=== PATIENT | female | born 1975 | race Caucasian/White ===

== ENCOUNTER 2020-11-17 18:58 | Emergency (ER) | payer BC ==
[~2020-11-17] VITALS: Ht 175.3 cm; Wt 84.1 kg
[~2020-11-17 18:58] MED LIST: HYDROCODON-ACE1 EA10 PO; HYDROCODON-ACE1 EAC7 PO; TORADOL10 MG PO
[2020-11-17 19:13] VITALS: BP 121/64; Ht 175.3 cm; Wt 84.1 kg
[2020-11-17] MEDS ORDERED: DICLOFENAC SODI50 MG PO (19:53)
== END 2020-11-17 20:04 | disposition home or self-care (01) ==
LOC: D.ER 18:58
DX: M54.5 Low back pain (principal); M79.641 Pain in right hand; M25.552 Pain in left hip; M79.642 Pain in left hand; R22.33 Localized swelling, mass and lump, upper limb, bilateral